=== PATIENT | male | born 1955 | race Caucasian/White ===

== ENCOUNTER 2019-09-30 14:39 | Outpatient (REF) | payer BC, SELFPAY ==
[2019-09-30 21:51] LABS: Anion Gap 9.2 mmol/L (3-11); BUN 16 mg/dL (7-18); CO2 27.8 mmol/L (21.0-32.0); CREATININE 0.98 mg/dL (0.70-1.30); Calculated LDL 101 mg/dL (<100); Chloride 102 mmol/L (98-107); Cholesterol 166 mg/dL (<200); Glucose 133 mg/dL (74-106); HDL Cholesterol 43 mg/dL (40-60); Potassium 4.3 mmol/L (3.5-5.1); Sodium 139 mmol/L (136-145); Triglyceride 114 mg/dL (<150)
[2019-10-02 11:48] LABS: HIV-1/2 Ag & Ab Screen Negative (Negative); Hepatitis C Ab w Rflx HCV PCR Negative (Negative)
[2019-10-02 15:18] LABS: PSA, Screening 0.8 ng/mL (0.0-4.5)
== END 2019-09-30 14:59 ==
LOC: NCHCN 14:39
PROVIDERS: Visit Provider Nurse Practitioner Family
DX: E11.9 Type 2 diabetes mellitus without complications (principal); F31.9 Bipolar disorder, unspecified; E66.9 Obesity, unspecified; K30 Functional dyspepsia; Z12.5 Encounter for screening for malignant neoplasm of prostate; Z11.4 Encounter for screening for human immunodeficiency virus [HIV]; N52.9 Male erectile dysfunction, unspecified; G47.33 Obstructive sleep apnea (adult) (pediatric); Z11.59 Encounter for screening for other viral diseases
CPT/HCPCS: 80048; 80061; 84153; 86803; 87389

== ENCOUNTER 2020-06-30 12:02 | Outpatient (REF) | payer BC, SELFPAY ==
[2020-06-30 13:48] LABS: Hemoglobin A1C 6.9 % (<5.7)
[2020-06-30 14:04] LABS: ALT 65 U/L (16-63); AST 28 U/L (15-37); Albumin 3.7 g/dL (3.4-5.0); Alkaline Phosphatase 67 U/L (46-116); Anion Gap 7.4 mmol/L (3-11); BUN 16 mg/dL (7-18); Bilirubin, Total 0.5 mg/dL (0.2-1.0); CO2 26.6 mmol/L (21.0-32.0); CREATININE 0.9 mg/dL (0.70-1.30); Calcium 8.6 mg/dL (8.5-10.1); Calculated LDL 94 mg/dL (<100); Chloride 107 mmol/L (98-107); Cholesterol 149 mg/dL (<200); Glucose 171 mg/dL (74-106); HDL Cholesterol 38 mg/dL (40-60); Potassium 4.6 mmol/L (3.5-5.1); Sodium 141 mmol/L (136-145); Total Protein 6.9 g/dL (6.4-8.2); Triglyceride 87 mg/dL (<150)
== END 2020-06-30 12:03 | disposition home or self-care (01) ==
LOC: NCHCN 12:02
PROVIDERS: Visit Provider Nurse Practitioner Family
DX: E11.9 Type 2 diabetes mellitus without complications (principal); K30 Functional dyspepsia; E66.9 Obesity, unspecified
CPT/HCPCS: 80053; 80061; 83036

== ENCOUNTER 2020-10-06 09:06 | Outpatient (REF) | payer BC, SELFPAY ==
[2020-10-06 15:28] LABS: Microalb ug/mg Crea 8.8 ug/mg Cr
[2020-10-06 15:31] LABS: ALT 74 U/L (16-63); AST 33 U/L (15-37); Albumin 3.8 g/dL (3.4-5.0); Alkaline Phosphatase 71 U/L (46-116); Anion Gap 10.9 mmol/L (3-11); BUN 17 mg/dL (7-18); Bilirubin, Total 0.7 mg/dL (0.2-1.0); CO2 25.1 mmol/L (21.0-32.0); Calcium 9.1 mg/dL (8.5-10.1); Chloride 106 mmol/L (98-107); Glucose 178 mg/dL (74-106); Potassium 4.4 mmol/L (3.5-5.1); Sodium 142 mmol/L (136-145); Total Protein 6.7 g/dL (6.4-8.2)
== END 2020-10-06 09:07 | disposition home or self-care (01) ==
LOC: NCHCN 09:06
PROVIDERS: Visit Provider Nurse Practitioner Family
DX: E11.9 Type 2 diabetes mellitus without complications (principal)
CPT/HCPCS: 80053; 82043; 82570

== ENCOUNTER 2020-11-30 10:58 | Outpatient (REF) | payer BC, SELFPAY ==
[2020-11-30 15:55] LABS: ALT 68 U/L (16-63); AST 39 U/L (15-37); Albumin 4.1 g/dL (3.4-5.0); Alkaline Phosphatase 60 U/L (46-116); Anion Gap 11.4 mmol/L (3-11); BUN 13 mg/dL (7-18); Bilirubin, Total 0.8 mg/dL (0.2-1.0); CO2 26.6 mmol/L (21.0-32.0); Calcium 8.9 mg/dL (8.5-10.1); Calculated LDL 75 mg/dL (<100); Chloride 102 mmol/L (98-107); Cholesterol 157 mg/dL (<200); Glucose 153 mg/dL (74-106); HDL Cholesterol 38 mg/dL (40-60); Potassium 4.7 mmol/L (3.5-5.1); Sodium 140 mmol/L (136-145); Total Protein 7.1 g/dL (6.4-8.2); Triglyceride 222 mg/dL (<150)
== END 2020-11-30 10:59 | disposition home or self-care (01) ==
LOC: NCHCN 10:58
PROVIDERS: Visit Provider Nurse Practitioner Family
DX: E11.9 Type 2 diabetes mellitus without complications (principal)
CPT/HCPCS: 80053; 80061

== ENCOUNTER 2021-04-29 16:02 | Outpatient (REF) | payer BC, SELFPAY ==
[2021-04-29 21:18] LABS: ALT 66 U/L (16-63); AST 27 U/L (15-37); Albumin 4.2 g/dL (3.4-5.0); Alkaline Phosphatase 58 U/L (46-116); Anion Gap 7.2 mmol/L (3-11); BUN 16 mg/dL (7-18); Bilirubin, Total 0.9 mg/dL (0.2-1.0); CO2 29.8 mmol/L (21.0-32.0); CREATININE 0.9 mg/dL (0.70-1.30); Calculated LDL 109 mg/dL (<100); Chloride 103 mmol/L (98-107); Cholesterol 181 mg/dL (<200); Glucose 132 mg/dL (74-106); HDL Cholesterol 46 mg/dL (40-60); Potassium 4.1 mmol/L (3.5-5.1); Sodium 140 mmol/L (136-145); Total Protein 7.4 g/dL (6.4-8.2); Triglyceride 133 mg/dL (<150)
== END 2021-04-29 16:03 | disposition home or self-care (01) ==
LOC: NCHCN 16:02
PROVIDERS: Visit Provider Nurse Practitioner Family
DX: E11.9 Type 2 diabetes mellitus without complications (principal)
CPT/HCPCS: 80053; 80061

== ENCOUNTER 2021-10-21 15:56 | Outpatient (REF) | payer BC, SELFPAY ==
[2021-10-21 16:05] LABS: ALT 54 U/L (16-63); AST 28 U/L (15-37); Albumin 3.8 g/dL (3.4-5.0); Alkaline Phosphatase 82 U/L (46-116); Anion Gap 11.1 mmol/L (3-11); BUN 19 mg/dL (7-18); Bilirubin, Total 0.5 mg/dL (0.2-1.0); CO2 24.9 mmol/L (21.0-32.0); CREATININE 0.9 mg/dL (0.70-1.30); Calcium 8.7 mg/dL (8.5-10.1); Calculated LDL 82 mg/dL (<100); Chloride 103 mmol/L (98-107); Cholesterol 170 mg/dL (<200); Glucose 155 mg/dL (74-106); HDL Cholesterol 42 mg/dL (40-60); Potassium 4.5 mmol/L (3.5-5.1); Sodium 139 mmol/L (136-145); Total Protein 7.3 g/dL (6.4-8.2); Triglyceride 232 mg/dL (<150)
== END 2021-10-21 15:57 | disposition home or self-care (01) ==
LOC: NCHCN 15:56
PROVIDERS: Visit Provider Nurse Practitioner Family
DX: E11.9 Type 2 diabetes mellitus without complications (principal)
CPT/HCPCS: 80053; 80061; 83036

== ENCOUNTER 2021-10-28 16:22 | Outpatient (REF) | payer BC, SELFPAY ==
[2021-10-28 16:18] LABS: COMMENT (LAB VIEW ONLY) 166.62 mg/dL; Microalb ug/mg Crea 5.6 ug/mg Cr
== END 2021-10-28 16:23 | disposition home or self-care (01) ==
LOC: NCHCN 16:22
PROVIDERS: Visit Provider Nurse Practitioner Family
DX: E11.9 Type 2 diabetes mellitus without complications (principal)
CPT/HCPCS: 82043; 82570

== ENCOUNTER 2021-12-28 18:54 | Outpatient (REF) | payer BC, SELFPAY ==
[2021-12-28 14:51] LABS: Abs Immature Grans 0.01 10^3/uL (0.0-0.06); Absolute Basophil Count 0.04 10^3/uL (0.0-0.2); Absolute Eosinophil Count 0.07 10^3/uL (0.0-0.7); Absolute Lymphocyte Count 1.59 10^3/uL (1.2-3.4); Absolute Monocyte Count 0.45 10^3/uL (0.1-0.8); Absolute Neutrophil Count 2.53 10^3/uL (1.2-6.7); Basophils % 0.9; Eosinophils % 1.5; HCT 43.6 % (40.0-50.0); HGB 15.1 g/dL (13.5-17.5); Immature Grans % 0.2; Lymphocytes % 33.9; MCH 31.4 pg (27.0-33.0); MCHC 34.6 % (32.0-36.0); MCV 91 fL (80-95); MPV 10.2 fL (8.0-11.0); Monocytes % 9.6; Neutrophils % 53.9; Platelet Count 259 10^3/uL (130-400); RBC 4.81 10^6/uL (4.36-5.78); RDW 11.7 % (11.8-14.1); RDW-SD 39.1 fL; WBC 4.69 10^3/uL (4.4-10.8)
[2021-12-28 14:57] LABS: Prothrombin Time 9.6 sec (9.3-11.0)
[2021-12-28 15:04] LABS: Anion Gap 10.6 mmol/L (3-11); BUN 18 mg/dL (7-18); CO2 25.4 mmol/L (21.0-32.0); CREATININE 0.9 mg/dL (0.70-1.30); Calcium 8.8 mg/dL (8.5-10.1); Chloride 105 mmol/L (98-107); Estimated GFR 95.37 (mL/min/1.73m2); Glucose 146 mg/dL (74-106); Potassium 4.2 mmol/L (3.5-5.1); Sodium 141 mmol/L (136-145)
[2021-12-28 15:27] LABS: Hemoglobin A1C 6.9 % (<5.7)
== END 2021-12-28 18:55 | disposition home or self-care (01) ==
LOC: NCHCN 18:54
PROVIDERS: Visit Provider Nurse Practitioner Family
DX: I10 Essential (primary) hypertension (principal); E11.9 Type 2 diabetes mellitus without complications; Z01.818 Encounter for other preprocedural examination
CPT/HCPCS: 80048; 83036; 85025; 85610

== ENCOUNTER 2022-08-31 15:48 | Outpatient (REF) | payer BC, SELFPAY ==
[2022-08-31 15:33] LABS: COMMENT (LAB VIEW ONLY) 170.08 mg/dL; Microalb ug/mg Crea 8.4 ug/mg Cr
--- OUTSIDE RECORDS SUMMARY | 2022-08-31 15:53 | XMS_ITS | CCD ---
Author Name Unknown Address [address] [place] [address] [phone] Organization Unknown Address [address] [place] [address] [phone] Care Team Providers Care Public Works Manager Name Role Phone EMETERIO MEDELLIN Attending Physician [phone] Vital Signs Unknown or Not Available. Allergies Allergy Code Allergy Type Reaction Status No Known Drug Allergies 0 No known drug allergies Active Procedures Procedure Code Procedure Type Date Arthroscopy, Shoulder, Surgi miguel angel; w/Rotator Cuff Repair 65435 CPT 01/05/2022 Surgical Arthroscopy Shoulde r Extensive Debridement 3 or More Discrete Structures 37444 CPT 01/05/2022 History of Immunizations Unknown or Not Available. Problems Problem Code Start Date Resolved Date Status Hypertension 44081182 Active Results Unknown or Not Available. Active Medications Unknown or Not Available. Medications Administered During Visit Unknown or Not Available. Encounters Encounter Diagnosis Diagnosis Code Start Date Complete rotator cuff tear o r rupture of left shoulder, not specified as traumatic [id number] 01/05/2022 Social History Smoking Status Code Start Date End Date Never smoker [id number] Patient Decision Aids Unknown or Not Available. Discharge Instructions You were admitted to [facility] on 01/05/2022 00:01 with a principal diagnosis of Complete rotator cuff tear or rupture of left shoulder, not specified as traumatic You had the following procedures done:Arthroscopy, Shoulder, Surgical; w/Rotator Cuff RepairSurgical Arthroscopy Shoulder Extensive Debridement 3 or More Discrete Structures You were discharged from [facility] on 01/05/2022 00:01 Should you have any questions prior to discharge, please contact a member of your healthcare team. If you have left the hospital and have any questions, please contact your primary care physician. Chief Complaint and Reason For Visit Unknown or Not Available. Function Status Unknown or Not Available. Plan of Care Unknown or Not Available. Referral/Transition of Care Unknown or Not Available.
--- OUTSIDE RECORDS SUMMARY | 2022-08-31 15:54 | XMS_ITS | CCD ---
Author Name Unknown Address [address] [place] [address] [id number] Organization Unknown Address [address] [place] [address] [phone] Care Team Providers Care Radiographic Technologist Name Role Phone EMETERIO MEDELLIN Attending Physician [phone] Vital Signs Unknown or Not Available. Allergies Allergy Code Allergy Type Reaction Status No Known Drug Allergies 0 No known drug allergies Active Procedures Unknown or Not Available. History of Immunizations Unknown or Not Available. Problems Problem Code Start Date Resolved Date Status Hypertension 94431491 Active Results PENNY ZUNIGAID RHEONIX* - Regina ect Date/Time: 01/04/2022 09:43 Test Name Code Test Result Test Units Test Ref Rang e Tier- 88256-2 PRE-OP N/A SARS COV2 RNA: 38318-1 NEGATIVE N/A REFERENCE RANGE: NEGAT Active Medications Unknown or Not Available. Medications Administered During Visit Unknown or Not Available. Encounters Encounter Diagnosis Diagnosis Code Start Date Pre-surgery testing [id number] 01/04/2022 Social History Smoking Status Code Start Date End Date Never smoker 819400339 Patient Decision Aids Unknown or Not Available. Discharge Instructions You were admitted to [facility] on 01/04/2022 16:51 with a principal diagnosis of Encounter for preprocedural laboratory examination You had the following tests done:PENNY COVID RHEONIX* You were discharged from [facility] on 01/04/2022 16:51 Should you have any questions prior to [...]
--- OUTSIDE RECORDS SUMMARY | 2022-08-31 15:54 | XMS_ITS | CCD ---
Author Name Unknown Address [address] [place] [address] [phone] Organization Unknown Address [address] [place] [address] [phone] Care Team Providers Care Ingot Car Operator Name Role Phone IRINEO HAGEN Attending Physician [phone] MELISSA VEGA Er Physician 2 [phone] ODALYS Guillermo Registered Nurse [phone] Vital Signs Vital Sign Value Unit Date/Time Recent/Initial ? BMI (Body Mass Index) 29.41 kg/m^2 03/28/2021 13: 46 Initial VS Weight Measured 205 lbs 03/28/2021 13:46 Ini tial VS Height 70 in 03/28/2021 13:46 Initial VS BSA (Body Surface Area) 2.14 m^2 03/28/2021 1 3:46 Initial VS BP Systolic 158 mmHg 03/28/2021 13:46 Initial VS BP Diastolic 87 mmHg 03/28/2021 13:46 Initia l VS Respiratory Rate 16 bpm 03/28/2021 13:46 In itial VS Heart Rate 78 bpm 03/28/2021 13:46 Initial VS O2 % BldC Oximetry 98 % 03/28/2021 13:46 Initial VS Body Temperature 37.1 degrees 03/28/2021 13:46 In itial VS Allergies Allergy Code Allergy Type Reaction Status No Known Drug Allergies 0 No known drug allergies Active Procedures Unknown or Not Available. History of Immunizations Unknown or Not Available. Problems Problem Code Start Date Resolved Date Status Hypertension 23872904 Active Diabetes 2 31936504 03/28/2021 Resolved Results PENNY ZUNIGAID GENEXPERT* - Co llect Date/Time: 03/28/2021 13:50 Test Name Code Test Result Test Units Test Ref Rang e COVID 82604-7 NEGATIVE N/A Normal: Negati ve Tier- SYMPTOMS N/A Active Medications Unknown or Not Available. Medications Administered During Visit Unknown or Not Available. Encounters Encounter Diagnosis Diagnosis Code Start Date Cough, unspecified R059 03/28/2021 Social History Smoking Status Code Start Date End Date Never smoker 729345777 Patient Decision Aids Unknown or Not Available. Discharge Instructions You were admitted to [facility] on 03/28/2021 11:44 with a principal diagnosis of Cough, unspecified You had the following tests done:[email or web address] GENEXPERT* You were discharged from [facility] on 03/28/2021 16:08 Should you have any questions prior to discharge, please contact a member of your healthcare team. If you have left the hospital and have any questions, please contact your primary care physician. Chief Complaint and Reason For Visit Chief Complaint Date of Onset FLU LIKE SYMTOMS Function Status Unknown or Not Available. Plan of Care Unknown or Not Available. Referral/Transition of Care Unknown or Not Available.
--- OUTSIDE RECORDS SUMMARY | 2022-08-31 15:54 | XMS_ITS | CCD ---
Author Name Unknown Address [address] [place] [address] [phone] Organization Unknown Address [address] [place] [address] [phone] Care Team Providers Care Waste Disposal Leakage Tester Name Role Phone JOSE ROBERTO SCHAEFER Attending Physician [phone] JOSE ROBERTO SCHAEFER Rounding (Secondary) Physician [phone] Vital Signs Unknown or Not Available. Allergies Allergy Code Allergy Type Reaction Status No Known Drug Allergies 0 No known drug allergies Active Procedures Unknown or Not Available. History of Immunizations Unknown or Not Available. Problems Problem Code Start Date Resolved Date Status Hypertension 12226753 Active Results Unknown or Not Available. Active Medications Unknown or Not Available. Medications Administered During Visit Unknown or Not Available. Encounters Encounter Diagnosis Diagnosis Code Start Date Follow-up orthopedic assessment 846904944 03/29/2022 Social History Smoking Status Code Start Date End Date Never smoker 509745509 Patient Decision Aids Unknown or Not Available. Discharge Instructions You were admitted to [facility] on 03/29/2022 13:20 with a principal diagnosis of Encounter for other orthopedic aftercare You were discharged from [facility] on 03/29/2022 00:00 Should you have any questions prior to [...]
--- OUTSIDE RECORDS SUMMARY | 2022-08-31 15:54 | XMS_ITS | CCD ---
Author Name Unknown Address [address] [place] [address] [id number] Organization Unknown Address [address] [place] [address] [phone] Care Team Providers Care Foundry Melt Supervisor Name Role Phone ANDREWS, WINTER K Attending Physician [phone] Vital Signs Unknown or Not Available. Allergies Allergy Code Allergy Type Reaction Status No Known Drug Allergies 0 No known drug allergies Active Procedures Unknown or Not Available. History of Immunizations Unknown or Not Available. Problems Problem Code Start Date Resolved Date Status Hypertension 94570600 Active Results Unknown or Not Available. Active Medications Unknown or Not Available. Medications Administered During Visit Unknown or Not Available. Encounters Encounter Diagnosis Diagnosis Code Start Date Strain of muscle(s) and tend on(s) of the rotator cuff of left shoulder, initial encounter [id number] 07/19/2021 Social History Smoking Status Code Start Date End Date Never smoker 557097011 Patient Decision Aids Unknown or Not Available. Discharge Instructions You were admitted to [facility] on 07/19/2021 09:34 with a principal diagnosis of Strain of muscle(s) and tendon(s) of the rotator cuff of left shoulder, initial encounter You were discharged from [facility] on 07/19/2021 09:34 Should you have any questions prior to discharge, please contact a member of your healthcare team. If you have left the hospital and have any questions, please contact your primary care physician. Chief Complaint and Reason For Visit Chief Complaint Date of Onset LT SHOULDER PAIN Function Status Unknown or Not Available. Plan of Care Unknown or Not Available. Referral/Transition of Care Unknown or Not Available.
--- OUTSIDE RECORDS SUMMARY | 2022-08-31 15:54 | XMS_ITS | CCD ---
Author Name Unknown Address [address] [place] [address] [phone] Organization Unknown Address [address] [place] [address] [phone] Care Team Providers Care Computer Console Operator Name Role Phone JOSE ROBERTO SCHAEFER Attending Physician [phone] JOSE ROBERTO SCHAEFER Rounding (Secondary) Physician [phone] Vital Signs Unknown or Not Available. Allergies Allergy Code Allergy Type Reaction Status No Known Drug Allergies 0 No known drug allergies Active Procedures Unknown or Not Available. History of Immunizations Unknown or Not Available. Problems Problem Code Start Date Resolved Date Status Hypertension 64069096 Active Results Unknown or Not Available. Active Medications Unknown or Not Available. Medications Administered During Visit Unknown or Not Available. Encounters Encounter Diagnosis Diagnosis Code Start Date Postprocedural state finding 050551985 Social History Smoking Status Code Start Date End Date Never smoker 916031760 Patient Decision Aids Unknown or Not Available. Discharge Instructions You were admitted to [facility] on 07/26/2022 14:19 with a principal diagnosis of Other specified postprocedural states You were discharged from [facility] on 07/26/2022 00:00 Should you have any questions prior [...]
--- OUTSIDE RECORDS SUMMARY | 2022-08-31 15:54 | XMS_ITS | CCD ---
Author Name Unknown Address [address] [place] [address] [id number] Organization Unknown Address [address] [place] [address] [phone] Care Team Providers Care Jockey Agent Name Role Phone KLEBER MCKENNA Attending Physician [phone] KLEBER MCKENNA (Secondary) Physician [phone] Vital Signs Unknown or Not Available. Allergies Allergy Code Allergy Type Reaction Status No Known Drug Allergies 0 No known drug allergies Active Procedures Unknown or Not Available. History of Immunizations Unknown or Not Available. Problems Problem Code Start Date Resolved Date Status Hypertension 28883533 Active Results Unknown or Not Available. Active Medications Unknown or Not Available. Medications Administered During Visit Unknown or Not Available. Encounters Encounter Diagnosis Diagnosis Code Start Date Follow-up orthopedic assessment 077457555 02/15/2022 Social History Smoking Status Code Start Date End Date Never smoker 966766029 Patient Decision Aids Unknown or Not Available. Discharge Instructions You were admitted to [facility] on 02/15/2022 07:28 with a principal diagnosis of Encounter for other orthopedic aftercare You were discharged from [facility] on 02/15/2022 00:00 Should you have any questions prior [...]
--- OUTSIDE RECORDS SUMMARY | 2022-08-31 15:54 | XMS_ITS | CCD ---
Author Name Unknown Address [address] [place] [address] [id number] Organization Unknown Address [address] [place] [address] [phone] Care Team Providers Care Health Outcomes Liaison Name Role Phone WINTER SPARROW Attending Physician [phone] WINTER SPARROW Rounding (Secondary) Physician [phone] Vital Signs Unknown or Not Available. Allergies Allergy Code Allergy Type Reaction Status No Known Drug Allergies 0 No known drug allergies Active Procedures Unknown or Not Available. History of Immunizations Unknown or Not Available. Problems Problem Code Start Date Resolved Date Status Hypertension 65627683 Active Results Unknown or Not Available. Active Medications Unknown or Not Available. Medications Administered During Visit Unknown or Not Available. Encounters Encounter Diagnosis Diagnosis Code Start Date Injury of shoulder region 198519582 2021 Social History Smoking Status Code Start Date End Date Never smoker 571839280 Patient Decision Aids Unknown or Not Available. Discharge Instructions You were admitted to [facility] on 05/17/2021 13:48 with a principal diagnosis of Shoulder injury You were discharged from [facility] on 05/17/2021 00:00 Should you have any questions prior [...]
--- OUTSIDE RECORDS SUMMARY | 2022-08-31 15:54 | XMS_ITS | CCD ---
Author Name Unknown Address [address] [place] [address] [id number] Organization Unknown Address [address] [place] [address] [phone] Care Team Providers Care Automobile Accessories Installer Name Role Phone PAMELA GALE Attending Physician [phone] PAMELA GALE Rounding (Secondary) Physici an [phone] Vital Signs Unknown or Not Available. Allergies Allergy Code Allergy Type Reaction Status No Known Drug Allergies 0 No known drug allergies Active Procedures Unknown or Not Available. History of Immunizations Unknown or Not Available. Problems Problem Code Start Date Resolved Date Status Hypertension 82870065 Active Results Unknown or Not Available. Active Medications Unknown or Not Available. Medications Administered During Visit Unknown or Not Available. Encounters Encounter Diagnosis Diagnosis Code Start Date Removal of suture 79573913 01/11/2022 Social History Smoking Status Code Start Date End Date Never smoker 597126721 Patient Decision Aids Unknown or Not Available. Discharge Instructions You were admitted to [facility] on 01/11/2022 08:32 with a principal diagnosis of Encounter for removal of sutures You were discharged from [facility] on 01/11/2022 00:00 Should you have any questions prior [...]
--- OUTSIDE RECORDS SUMMARY | 2022-08-31 15:55 | XMS_ITS | CCD ---
Author Name Unknown Address [address] [place] [address] [phone] Organization Unknown Address [address] [place] [address] [phone] Care Team Providers Care Application Systems Administrator Name Role Phone GOLD HINOJOSA Attending Physician [phone] ALESHA GARCIA Er Physician [phone] CHAVEZ Salgado Registered Nurse [phone] Vital Signs Vital Sign Value Unit Date/Time Recent/Initial ? BMI (Body Mass Index) 28.7 kg/m^2 12/30/2021 09: 30 Initial VS Weight Measured 200 lbs 12/30/2021 09:30 Ini tial VS Height 70 in 12/30/2021 09:30 Initial VS BSA (Body Surface Area) 2.12 m^2 12/30/2021 0 9:30 Initial VS BP Systolic 167 mmHg 12/30/2021 09:30 Initial VS BP Diastolic 109 mmHg 12/30/2021 09:30 Initia l VS Respiratory Rate 18 bpm 12/30/2021 09:30 In itial VS Heart Rate 64 bpm 12/30/2021 09:30 Initial VS O2 % BldC Oximetry 97 % 12/30/2021 09:30 Initial VS Body Temperature 36.2 degrees 12/30/2021 09:30 In itial VS Allergies Allergy Code Allergy Type Reaction Status No Known Drug Allergies 0 No known drug allergies Active Procedures Unknown or Not Available. History of Immunizations Unknown or Not Available. Problems Problem Code Start Date Resolved Date Status Hypertension 01208328 Active Results Unknown or Not Available. Active Medications Unknown or Not Available. Medications Administered During Visit Unknown or Not Available. Encounters Encounter Diagnosis Diagnosis Code Start Date Unspecified contact dermatitis, unspecified caus e L259 12/30/2021 Social History Smoking Status Code Start Date End Date Never smoker 528885171 Patient Decision Aids Unknown or Not Available. Discharge Instructions You were admitted to [facility] on 12/30/2021 09:13 with a principal diagnosis of Unspecified contact dermatitis, unspecified cause You were discharged from [facility] on 12/30/2021 10:49 Should you have any questions prior to discharge, please contact a member of your healthcare team. If you have left the hospital and have any questions, please contact your primary care physician. Chief Complaint and Reason For Visit Chief Complaint Date of Onset RASH Function Status Unknown or Not Available. Plan of Care Unknown or Not Available. Referral/Transition of Care Unknown or Not Available.
--- OUTSIDE RECORDS SUMMARY | 2022-08-31 15:55 | XMS_ITS | CCD ---
Author Name Unknown Address [address] [place] [address] [phone] Organization Unknown Address [address] [place] [address] [phone] Care Team Providers Care Currency Machine Operator Name Role Phone EMETERIO MEDELLIN Attending Physician [phone] EMETERIO MEDELLIN Rounding (Secondary) Physician [phone] Vital Signs Unknown or Not Available. Allergies Allergy Code Allergy Type Reaction Status No Known Drug Allergies 0 No known drug allergies Active Procedures Unknown or Not Available. History of Immunizations Unknown or Not Available. Problems Problem Code Start Date Resolved Date Status Hypertension 77573313 Active Results Unknown or Not Available. Active Medications Unknown or Not Available. Medications Administered During Visit Unknown or Not Available. Encounters Encounter Diagnosis Diagnosis Code Start Date Impingement syndrome of left shoulder M7542 09/21/2021 Social History Smoking Status Code Start Date End Date Never smoker 847534908 Patient Decision Aids Unknown or Not Available. Discharge Instructions You were admitted to [facility] on 09/21/2021 09:42 with a principal diagnosis of Impingement syndrome of left shoulder You were discharged from [facility] on 09/21/2021 00:00 Should you have any questions prior [...]
--- OUTSIDE RECORDS SUMMARY | 2022-08-31 15:55 | XMS_ITS | CCD ---
Author Name Unknown Address [address] [place] [address] [phone] Organization Unknown Address [address] [place] [address] [phone] Care Team Providers Care Dinkey Mechanic Name Role Phone EMETERIO MEDELLIN Attending Physician [phone] Vital Signs Vital Sign Value Unit Date/Time Recent/Initial ? BMI (Body Mass Index) 29.41 kg/m^2 12/23/2021 13: 25 Initial VS Weight Measured 205 lbs 12/23/2021 13:25 Ini tial VS Height 70 in 12/23/2021 13:25 Initial VS BSA (Body Surface Area) 2.14 m^2 12/23/2021 1 3:25 Initial VS Allergies Allergy Code Allergy Type Reaction Status No Known Drug Allergies 0 No known drug allergies Active Procedures Procedure Code Procedure Type Date Arthroscopy, Shoulder, Surgi miguel angel; w/Rotator Cuff Repair 91607 CPT 01/05/2022 Surgical Arthroscopy Shoulde r Extensive Debridement 3 or More Discrete Structures 73206 CPT 01/05/2022 Injection Anesthetic Agent a nd/or Steroid; Brachial Plexus 18779 CPT 01/05/2022 Anesthesia, Open/Surg Arthro scopic Proc, Humeral Head & Neck, Sternoclav/AC/Shoulder Jt; NOS 72675 CPT 0 01/05/2022 History of Immunizations Unknown or Not Available. Problems Problem Code Start Date Resolved Date Status Hypertension 63654486 Active Results GLUCOSE FINGER/HEEL CAPILLAR Y - Collect Date/Time: 01/05/2022 11:12 Test Name Code Test Result Test Units Test Ref Rang e GLUCOSE CAP 161 mg/dL L=70 H=116 GLUCOSE FINGER/HEEL CAPILLAR Y - Collect Date/Time: 01/05/2022 07:47 Test Name Code Test Result Test Units Test Ref Rang e GLUCOSE CAP 171 mg/dL L=70 H=116 Active Medications Medications Administered During Visit Medication Dose Units Frequency Route Date/Time of Last Dose LACTATED RINGERS 1000ML 1000 ML X1 01/05/2022 07:56 CeFAZolin IVPB FROZEN PREMIX : 2GM/100ML 2 GM X1 01/05/2022 09:2 5 PREGABALIN CAPSULE: 50MG 100 MG X1 PO 01/05/2022 07:55 CELECOXIB CAPSULE: 100MG 200 MG X1 PO 01/05/2022 07:55 MIDAZOLAM INJ SDV: 2MG/2ML 2 MG X1 IVP 01/05/2022 08:25 Encounters Encounter Diagnosis Diagnosis Code Start Date Strain of muscle(s) and tend on(s) of the rotator cuff of left shoulder, initial encounter V19900K 01/05/2022 Social History Smoking Status Code Start Date End Date Never smoker 333546489 Patient Decision Aids Unknown or Not Available. Discharge Instructions You were admitted to [facility] on 01/05/2022 07:06 with a principal diagnosis of Strain of muscle(s) and tendon(s) of the rotator cuff of left shoulder, initial encounter You had the following procedures done:Arthroscopy, Shoulder, Surgical; w/Rotator Cuff RepairSurgical Arthroscopy Shoulder Extensive Debridement 3 or More Discrete StructuresInjection Anesthetic Agent and/or Steroid; Brachial PlexusAnesthesia, Open/Surg Arthroscopic Proc, Humeral Head & Neck, Sternoclav/AC/Shoulder Jt; NOS You had the following tests done:GLUCOSE FINGER/HEEL CAPILLARYGLUCOSE FINGER/HEEL CAPILLARY You were discharged from [facility] on 01/05/2022 12:43 Should you have any questions prior to [...]
== END 2022-08-31 15:49 | disposition home or self-care (01) ==
LOC: NCHCN 15:48
PROVIDERS: Visit Provider Registered Nurse
DX: E11.9 Type 2 diabetes mellitus without complications (principal)
CPT/HCPCS: 82043; 82570

== ENCOUNTER 2022-11-30 18:47 | Outpatient (REF) | payer BC, SELFPAY ==
[2022-11-30 16:28] LABS: Anion Gap 9.5 mmol/L (3-11); BUN 19 mg/dL (7-18); CO2 25.5 mmol/L (21.0-32.0); CREATININE 0.8 mg/dL (0.70-1.30); Chloride 104 mmol/L (98-107); Estimated GFR 98.21 (mL/min/1.73m2); Glucose 111 mg/dL (74-106); Sodium 139 mmol/L (136-145)
== END 2022-11-30 18:48 | disposition home or self-care (01) ==
LOC: NCHCN 18:47
PROVIDERS: Visit Provider Registered Nurse
DX: I10 Essential (primary) hypertension (principal); E11.9 Type 2 diabetes mellitus without complications
CPT/HCPCS: 80048

== ENCOUNTER 2023-08-15 16:24 | Outpatient (REF) | payer BC, SELFPAY ==
[2023-08-15 21:22] LABS: Calculated LDL 48 mg/dL (<100); Cholesterol 126 mg/dL (<200); HDL Cholesterol 54 mg/dL (40-60); Triglyceride 122 mg/dL (<150)
== END 2023-08-15 16:25 | disposition home or self-care (01) ==
LOC: NCHCN 16:24
PROVIDERS: Visit Provider Physician Assistant
DX: E11.9 Type 2 diabetes mellitus without complications (principal)
CPT/HCPCS: 80061

== ENCOUNTER 2024-02-22 15:16 | Outpatient (REF) | payer BC, SELFPAY ==
--- OUTSIDE RECORDS SUMMARY | 2024-02-22 15:17 | XMS_ITS ---
Author Organization Unknown Address [address] [place] [address] [phone] Phone Care Team Providers Care Pen Rider Name Role Phone ANDREWS Gomes Attending Unavailable ALONSO GARCIA Primary Unavailable Results XR SHOULDER 2+ VIEWS LT* - C ompleted: 05/17/2021 16:26 LOINC: LEFT SHOULDER - THREE VIEWS There is no evidence of acute fracture nor dislocation. No abnormal soft tissue calcifications. There is mild narrowing of the glenohumeral joint space as seen on the Grashey view. No osteophytes evident. Subacromial space does not appear diminished. No os acromiale. IMPRESSION: Mild narrowing of the glenohumeral joint space noted. Dictated by: EAGLE MCKEON MD Transcribed by: [facility] [place] 05/18/21/09:23 D 05/17/2021 14:09:29 [id number] Electronically Reviewed and Signed By: KATIE MCKEON MD 05/19/21 07:29 Copy for: [facility] Social History Type Status Start Date End Date Code Code Syst em Smoking History Never smoker (Never Smoked) 398306106 SNOMED CT Sex Male Assessment You had the following problems:HYPERTENSION Hospital Discharge Instructions Should you have any questions prior to discharge, please contact a member of your healthcare team. If you have left the hospital and have any questions, please contact your primary care physician. Reason For Referral No Data Found Implants Implanted VERONICA Status Assigning Authority Procedure Date Lot Number Serial Number Manufacturing Date Expiration Date Distinct ID Code Brand Name Model Number Tendon/lig ament bone anchor, bioabsorba ble 0100 8888 6736 9658 1726 0131 1014 [id number] 84 Active FDA left shoulder arthroscop y, rotator cuff repair 01/05 [id number] 05/31/2025 Arthre x(R) AR-2600 SBS-10 Problems Problem Start Date Resolved Date Status Code Code System HYPERTENSION active 09721070 SNOMED- CT DIABETES 2 03/28/2021 resolved 40033446 SNOMED-C T Allergies and Adverse Reactions Allergy Substance Reaction Severity Start Date Concern Status Co de Code System No Known Drug Allergies Active 192752016 SNOMED-CT Plan of Treatment PRE-OP COVID-19 TESTING 01/04/2022 MRI LOWER EXT JOINT W/O CONTRAST 2021 Encounters Encounter Diagnosis Start Date Code Code Sys tem Injury of shoulder region 05/17/2021 111483214 SN OMED-CT Personal Care Team Section Performer Name Performer Role Active Date Inactive Justin bhagat
--- OUTSIDE RECORDS SUMMARY | 2024-02-22 15:17 | XMS_ITS ---
Author Organization Unknown ALLERGIES AND ADVERSE REACTIONS No information ASSESSMENT No information CHIEF COMPLAINT No information MEDICATIONS No information OBJECTIVE DATA No information PHYSICAL EXAMINATION No information TREATMENT PLAN Planned Care Start Date Provider Encounter for Check-up [phone] PROBLEMS No information RESULTS No information REVIEW OF SYSTEMS No information SUBJECTIVE DATA No information VITAL SIGNS No information
--- OUTSIDE RECORDS SUMMARY | 2024-02-22 15:18 | XMS_ITS ---
Author Organization Unknown Address [address] [place] [address] [phone] Phone Care Team Providers Care Bell Clerk Name Role Phone ANDREWS Gomes Attending Unavailable ALONSO GARCIA Primary Unavailable Social History Type Status Start Date End Date Code Code Syst em Smoking History Never smoker (Never Smoked) 222487392 SNOMED CT Sex Male Assessment You had [...] shoulder arthroscop y, rotator cuff repair 01/05 2798731 4 05/31/2025 Arthre x(R) AR-2600 SBS-10 Problems Problem Start Date Resolved Date Status Code Code System HYPERTENSION active 34926732 SNOMED- CT DIABETES 2 03/28/2021 resolved 78109492 SNOMED-C T Allergies and Adverse Reactions Allergy Substance Reaction Severity Start Date Concern Status Co de Code System No Known Drug Allergies Active 808759850 SNOMED-CT Plan of Treatment PRE-OP COVID-19 TESTING 01/04/2022 MRI LOWER EXT JOINT W/O CONTRAST 2021 Encounters Encounter Diagnosis Start Date Code Code Sys tem Strain of rotator cuff of shoulder 08/09/2021 279850 005 SNOMED-CT Personal Care Team Section Performer Name Performer Role Active Date Inactive Da te
--- OUTSIDE RECORDS SUMMARY | 2024-02-22 15:18 | XMS_ITS ---
Author Organization Unknown Address [address] [place] [address] [phone] Phone Care Team Providers Care Interior Design Coordinator Name Role Phone ANDREWS Gomes Attending Unavailable ALONSO GARCIA Primary Unavailable Results MR UPPER EXT ANY JOINT LT WI THOUT CONTR* - Completed: 07/19/2021 11:04 LOINC: LEFT SHOULDER MRI Noncontrast MRI of the left shoulder was performed according to protocol. Comparison x-ray is 05/17/21. There is a full-thickness tear of the supraspinatus tendon at its insertion site. There is a gap of 8 mm. The teres minor and infraspinatus tendons are intact. The subscapularis tendon is intact. The rotator cuff muscles show no significant fatty atrophy. The biceps tendon has a normal appearance and location. Degenerative changes are seen at the acromioclavicular joint and the glenohumeral joint. No evidence of an occult fracture or avascular necrosis is present. There is an irregular contour and signal of the posterior and superior labrum. A tear cannot be excluded. Degeneration may also be considered. The remainder of the labrum is grossly unremarkable on this noncontrast examination. There is a small amount of fluid in the subacromial-subdeltoid bursa. No other focal fluid collection is seen. No soft tissue mass is appreciated. The coracoclavicular ligament is intact. The glenohumeral joint capsule appears grossly unremarkable. IMPRESSION: 1. Full-thickness tear of the supraspinatus tendon with a gap of approximately 8 mm. 2. Abnormal signal and size seen in the posterior and superior labrums. This may represent a degeneration or tear. 3. Degenerative changes seen at the glenohumeral and acromioclavicular joints. Dictated by: BRAN SU MD Transcribed by: [facility] 07/19/21/13:38 D Monday, July 19, 2021 10:51:45 AM [id number] Electronically Reviewed and Signed By: JORGE SU MD 07/19/21 14:15 Copy for: ALONSO GARCIA via fax Copy for: [facility] INFORMATION MGMT Social History Type Status Start Date End Date Code Code Syst em Smoking History Never smoker (Never Smoked) 108773558 SNOMED CT Sex Male Assessment You had [...] shoulder arthroscop y, rotator cuff repair 01/05 2228737 4 05/31/2025 Arthre x(R) AR-2600 SBS-10 Problems Problem Start Date Resolved Date Status Code Code System HYPERTENSION active 19530983 SNOMED- CT DIABETES 2 03/28/2021 resolved 24203356 SNOMED-C T Allergies and Adverse Reactions Allergy Substance Reaction Severity Start Date Concern Status Co de Code System No Known Drug Allergies Active 680516789 SNOMED-CT Plan of Treatment PRE-OP COVID-19 TESTING 01/04/2022 MRI LOWER EXT JOINT W/O CONTRAST 2021 Encounters Encounter Diagnosis Start Date Code Code Sys tem Strain of muscle(s) and tend on(s) of the rotator cuff of left shoulder, initial encounter 07/19/2021 SNOMED- CT Personal Care Team Section Performer Name Performer Role Active Date Inactive Da te
--- OUTSIDE RECORDS SUMMARY | 2024-02-22 15:19 | XMS_ITS ---
Author Organization Unknown Address [address] [place] [address] [phone] Phone Care Team Providers Care Broadcasting Equipment Mechanic Name Role Phone CHAVEZ REYNOSO Registered Nurse Unavailable MICAELA Johnson Attending Unavailable RADHA Hernandez [facility] Unavailable ALONSO GARCIA Primary Unavailable UNLISTED PROVIDER - REQUESTED Xhandoff Un available Social History Type Status Start Date End Date Code Code Syst em Smoking History Never smoker (Never Smoked) 088605757 SNOMED CT Sex Male Vital Signs Vital Sign Value Unit Spickard Value Spickard Unit Date/Time Recent/Initial? Code Code System Body Mass Index 28.70 kg/m2 12/30/2021 09:30 Initial 01759 -5 LOINC Systolic Blood Pressure 167 mm[Hg] 12/30/2021 09:30 Initial 8480- 6 LOINC Diastolic Blood Pressure 109 mm[Hg] 12/30/2021 09:30 Initial 8462- 4 LOINC Body Surface Area 2.12 m2 12/30/2021 09:30 Initial 3140- 1 LOINC Height 177.800 0 cm 70.00 in 12/30/2021 09:30 Initial 8302- 2 LOINC O2 Saturation 97 % 2021 09:30 Initial 13521 -5 LOINC Pulse 64.0 /min 12/30/2021 09:30 Initial 8867- 4 LOINC Respiration 18 /min 12/31/19 09:30 Initial 9279- 1 LOINC Temperature 36.2 Padma 97.2 F 12/31/19 09:30 Initial 8310- 5 LOINC Weight 90.72 kg 200.00 lbs 12/30/2021 09:30 Initial 28962 -7 LOINC Assessment You had the following problems:HYPERTENSION Hospital [...] shoulder arthroscop y, rotator cuff repair 01/05 5455898 4 05/31/2025 Arthre x(R) AR-2600 SBS-10 Problems Problem Start Date Resolved Date Status Code Code System HYPERTENSION active 04584577 SNOMED- CT DIABETES 2 03/28/2021 resolved 04473281 SNOMED-C T Allergies and Adverse Reactions Allergy Substance Reaction Severity Start Date Concern Status Co de Code System No Known Drug Allergies Active 156515231 SNOMED-CT Plan of Treatment PRE-OP COVID-19 TESTING 01/04/2022 MRI LOWER EXT JOINT W/O CONTRAST 2021 Encounters Encounter Diagnosis Start Date Code Code Sys tem Unspecified contact dermatitis, unspecified cause 05/2021 SNOMED-CT Personal Care Team Section Performer Name Performer Role Active Date Inactive Da te
--- OUTSIDE RECORDS SUMMARY | 2024-02-22 15:19 | XMS_ITS ---
Author Organization Unknown Address [address] [place] [address] [phone] Phone Care Team Providers Care Hog Buyer Name Role Phone LACIE Trinidad Attending Unavailable MABEL Mata FRACTIONATING STILL OPERATOR Unavailable OLIVE CID Physician Certified Rehabilitation Counselor Unavailable ALONSO GARCIA Primary Unavailable Results GLUCOSE FINGER/HEEL CAPILLAR Y - Collect Date/Time: 01/05/2022 11:12 [facility] ID: [id number] [address] [place] [address], [phone] LOINC: 99282-7 Test Value Unit Reference Range Code Code System Flag GLUCOSE CAP 161 mg/dL L=70 H=116 H GLUCOSE FINGER/HEEL CAPILLAR Y - Collect Date/Time: 01/05/2022 07:47 [facility] ID: [id number] [address] [place] [address], [phone] LOINC: 35648-5 Test Value Unit Reference Range Code Code System Flag GLUCOSE CAP 171 mg/dL L=70 H=116 H Social History Type Status Start Date End Date Code Code Syst em Smoking History Never smoker (Never Smoked) 294409332 SNOMED CT Sex Male Vital Signs Vital Sign Value Unit Mercer Value Mercer Unit Date/Time Recent/Initial? Code Code System Body Mass Index 29.41 kg/m2 12/23/2021 13:25 Initial 54793- 5 LOINC Body Surface Area 2.14 m2 12/23/2021 13:25 Initial 3140-1 LOINC Height 177.8000 cm 70.00 in 12/23/2021 13:25 Initial 8302-2 LOINC Weight 92.99 kg 205.00 lbs 12/23/2021 13:25 Initial 98136- 7 [facility] Assessment You had the following problems:HYPERTENSION Hospital Discharge Instructions Should you have any questions prior to discharge, please contact a member of your healthcare team. If you have left the hospital and have any questions, please contact your primary care physician. Reason For Referral No Data Found Procedures Procedure Name Date Status Code Code Syste m Arthroscopy, Shoulder, Surgi miguel angel; w/Rotator Cuff Repair 01/05/2022 completed 82514 CPT Surgical Arthroscopy Shoulde r Extensive Debridement 3 or More Discrete Structures 01/05/2022 completed 96966 CPT Injection Anesthetic Agent a nd/or Steroid; Brachial Plexus 01/05/2022 completed 05591 CPT Anesthesia, Open/Surg Arthro scopic Proc, Humeral Head & Neck, Sternoclav/AC/Shoulder Jt; NOS 01/05/2022 completed 06288 CPT Implants Implanted VERONICA Status Assigning Authority Procedure Date Lot Number Serial Number Manufacturing Date Expiration Date Distinct ID Code Brand Name Model Number Tendon/lig ament bone anchor, bioabsorba ble 0100 8888 6736 9658 1726 0131 [id number] 84 Active FDA left shoulder arthroscop y, rotator cuff repair 01/05 5231214 4 05/31/2025 Arthre x(R) AR-2600 SBS-10 Problems Problem Start Date Resolved Date Status Code Code System HYPERTENSION active 50058275 SNOMED- CT DIABETES 2 03/28/2021 resolved 75562249 SNOMED-C T Allergies and Adverse Reactions Allergy Substance Reaction Severity Start Date Concern Status Co de Code System No Known Drug Allergies Active 272656109 SNOMED-CT Plan of Treatment PRE-OP COVID-19 TESTING 01/04/2022 MRI LOWER EXT JOINT W/O CONTRAST 2021 Encounters Encounter Diagnosis Start Date Code Code Sys tem Strain of muscle(s) and tend on(s) of the rotator cuff of left shoulder, initial encounter 01/05/2022 SNOMED- CT Personal Care Team Section Performer Name Performer Role Active Date Inactive Da te
--- OUTSIDE RECORDS SUMMARY | 2024-02-22 15:19 | XMS_ITS ---
Author Organization Unknown Address [address] [place] [address] [phone] Phone Care Team Providers Care Bar Useful Or Busser Name Role Phone LACIE Trinidad Attending Unavailable Social History Type Status Start Date End Date Code Code Syst em Smoking History Never smoker (Never Smoked) 819000327 SNOMED CT Sex Male Assessment You had [...] miguel angel; w/Rotator Cuff Repair 01/05/2022 completed 60329 CPT Surgical Arthroscopy Shoulde r Extensive Debridement 3 or More Discrete Structures 01/05/2022 completed 30990 CPT Implants Implanted VERONICA Status Assigning Authority Procedure Date Lot Number Serial Number Manufacturing Date Expiration Date Distinct ID Code Brand Name Model Number Tendon/lig ament bone anchor, bioabsorba ble 0100 8888 6736 9658 1726 0131 1014 [id number] 84 Active FDA left shoulder arthroscop y, rotator cuff repair 01/05 1886911 4 05/31/2025 Arthre x(R) AR-2600 SBS-10 Problems Problem Start Date Resolved Date Status Code Code System HYPERTENSION active 37948753 SNOMED- CT DIABETES 2 03/28/2021 resolved 09724619 SNOMED-C T Allergies and Adverse Reactions Allergy Substance Reaction Severity Start Date Concern Status Co de Code System No Known Drug Allergies Active 905496726 SNOMED-CT Plan of Treatment PRE-OP COVID-19 TESTING 01/04/2022 MRI LOWER EXT JOINT W/O CONTRAST 2021 Encounters Encounter Diagnosis Start Date Code Code Sys tem Complete rotator cuff tear o r rupture of left shoulder, not specified as traumatic 01/05/2022 SNOMED-CT Personal Care Team Section Performer Name Performer Role Active Date Inactive Da te
--- OUTSIDE RECORDS SUMMARY | 2024-02-22 15:20 | XMS_ITS ---
Author Organization Unknown Address [address] [place] [address] [phone] Phone Care Team Providers Care Ship Engineer Name Role Phone SHAHLA PAMELA Khan Attending Unavailable ALONSO GARCIA Primary Unavailable Social History Type Status Start Date End Date Code Code Syst em Smoking History Never smoker (Never Smoked) 143674807 SNOMED CT Sex Male Assessment You had [...] shoulder arthroscop y, rotator cuff repair 01/05 9037280 4 05/31/2025 Arthre x(R) AR-2600 SBS-10 Problems Problem Start Date Resolved Date Status Code Code System HYPERTENSION active 98328872 SNOMED- CT DIABETES 2 03/28/2021 resolved 57433781 SNOMED-C T Allergies and Adverse Reactions Allergy Substance Reaction Severity Start Date Concern Status Co de Code System No Known Drug Allergies Active 037911829 SNOMED-CT Plan of Treatment PRE-OP COVID-19 TESTING 01/04/2022 MRI LOWER EXT JOINT W/O CONTRAST 2021 Encounters Encounter Diagnosis Start Date Code Code Sys tem Removal of suture 01/11/2022 14212783 SNOMED-CT Personal Care Team Section Performer Name Performer Role Active Date Inactive Da te
--- OUTSIDE RECORDS SUMMARY | 2024-02-22 15:20 | XMS_ITS ---
Author Organization Unknown Address [address] [place] [address] [phone] Phone Care Team Providers Care Analyst Name Role Phone LACIE Trinidad Attending Unavailable ALONSO GARCIA Primary Unavailable Social History Type Status Start Date End Date Code Code Syst em Smoking History Never smoker (Never Smoked) 403450785 SNOMED CT Sex Male Assessment You had [...] shoulder arthroscop y, rotator cuff repair 01/05 3373283 4 05/31/2025 Arthre x(R) AR-2600 SBS-10 Problems Problem Start Date Resolved Date Status Code Code System HYPERTENSION active 05200893 SNOMED- CT DIABETES 2 03/28/2021 resolved 76764250 SNOMED-C T Allergies and Adverse Reactions Allergy Substance Reaction Severity Start Date Concern Status Co de Code System No Known Drug Allergies Active 952897614 SNOMED-CT Plan of Treatment PRE-OP COVID-19 TESTING 01/04/2022 MRI LOWER EXT JOINT W/O CONTRAST 2021 Encounters Encounter Diagnosis Start Date Code Code Sys tem Encounter for other orthopedic aftercare 01/18/2022 SNOMED-CT Personal Care Team Section Performer Name Performer Role Active Date Inactive Da te
--- OUTSIDE RECORDS SUMMARY | 2024-02-22 15:20 | XMS_ITS ---
Author Organization Unknown Address [address] [place] [address] [phone] Phone Care Team Providers Care Dairy Farmer Name Role Phone LACIE Trinidad Attending Unavailable ALONSO GARCIA Primary Unavailable [facility] [place] ect Date/Time: 01/04/2022 09:43 ID: [id number] [address] [place] [address], [phone] LOINC: 75617-5 Test Value Unit Reference Range Code Code System Flag Tier- PRE-OP 69146-0 LOINC SARS COV2 RNA: NEGATIVE REFERENCE RANGE: NEGAT 40793-0 L OINC Social History Type Status Start Date End Date Code Code Syst em Smoking History Never smoker (Never Smoked) 224338210 SNOMED CT Sex Male Assessment You had [...] shoulder arthroscop y, rotator cuff repair 01/05 1541084 4 05/31/2025 Arthre x(R) AR-2600 SBS-10 Problems Problem Start Date Resolved Date Status Code Code System HYPERTENSION active 42309505 SNOMED- CT DIABETES 2 03/28/2021 resolved 53850727 SNOMED-C T Allergies and Adverse Reactions Allergy Substance Reaction Severity Start Date Concern Status Co de Code System No Known Drug Allergies Active 921584363 SNOMED-CT Plan of Treatment PRE-OP COVID-19 TESTING 01/04/2022 MRI LOWER EXT JOINT W/O CONTRAST 2021 Encounters Encounter Diagnosis Start Date Code Code Sys tem Pre-surgery testing 01/04/2022 240175284 SNOMED-C T Personal Care Team Section Performer Name Performer Role Active Date Inactive Da olayinka
--- OUTSIDE RECORDS SUMMARY | 2024-02-22 15:21 | XMS_ITS ---
Author Organization Unknown Address [address] [place] [address] [phone] Phone Care Team Providers Care Draw Frame Operator Name Role Phone OLIVE CID Attending Unavailable ALONSO GARCIA Primary Unavailable Social History Type Status Start Date End Date Code Code Syst em Smoking History Never smoker (Never Smoked) 120366301 SNOMED CT Sex Male Assessment You had [...] shoulder arthroscop y, rotator cuff repair 01/05 5528838 4 05/31/2025 Arthre x(R) AR-2600 SBS-10 Problems Problem Start Date Resolved Date Status Code Code System HYPERTENSION active 76784871 SNOMED- CT DIABETES 2 03/28/2021 resolved 98051567 SNOMED-C T Allergies and Adverse Reactions Allergy Substance Reaction Severity Start Date Concern Status Co de Code System No Known Drug Allergies Active 710144014 SNOMED-CT Plan of Treatment PRE-OP COVID-19 TESTING 01/04/2022 MRI LOWER EXT JOINT W/O CONTRAST 2021 Encounters Encounter Diagnosis Start Date Code Code Sys tem Postprocedural state finding 05/30/2022 071124600 SNOMED-CT Personal Care Team Section Performer Name Performer Role Active Date Inactive Da te
--- OUTSIDE RECORDS SUMMARY | 2024-02-22 15:21 | XMS_ITS ---
Author Organization Unknown Address [address] [place] [address] [phone] Phone Care Team Providers Care Spa Director/Finance Name Role Phone OLIVE CID Attending Unavailable ALONSO GARCIA Primary Unavailable Social History Type Status Start Date End Date Code Code Syst em Smoking History Never smoker (Never Smoked) 705637364 SNOMED CT Sex Male Assessment You had [...] shoulder arthroscop y, rotator cuff repair 01/05 0093539 4 05/31/2025 Arthre x(R) AR-2600 SBS-10 Problems Problem Start Date Resolved Date Status Code Code System HYPERTENSION active 69392850 SNOMED- CT DIABETES 2 03/28/2021 resolved 54894254 SNOMED-C T Allergies and Adverse Reactions Allergy Substance Reaction Severity Start Date Concern Status Co de Code System No Known Drug Allergies Active 253015896 SNOMED-CT Plan of Treatment PRE-OP COVID-19 TESTING 01/04/2022 MRI LOWER EXT JOINT W/O CONTRAST 2021 Encounters Encounter Diagnosis Start Date Code Code Sys tem Postprocedural state finding 07/26/2022 714916971 SNOMED-CT Personal Care Team Section Performer Name Performer Role Active Date Inactive Da te
--- OUTSIDE RECORDS SUMMARY | 2024-02-22 15:21 | XMS_ITS ---
Author Organization Unknown Address [address] [place] [address] [phone] Phone Care Team Providers Care Creosoting Engineer Name Role Phone CLARISA SHAHID Attending Unavailable ALONSO GARCIA Primary Unavailable Social History Type Status Start Date End Date Code Code Syst em Smoking History Never smoker (Never Smoked) 470012969 SNOMED CT Sex Male Assessment You had [...] shoulder arthroscop y, rotator cuff repair 01/05 8271377 4 05/31/2025 Arthre x(R) AR-2600 SBS-10 Problems Problem Start Date Resolved Date Status Code Code System HYPERTENSION active 96730691 SNOMED- CT DIABETES 2 03/28/2021 resolved 36180150 SNOMED-C T Allergies and Adverse Reactions Allergy Substance Reaction Severity Start Date Concern Status Co de Code System No Known Drug Allergies Active 026000968 SNOMED-CT Plan of Treatment PRE-OP COVID-19 TESTING 01/04/2022 MRI LOWER EXT JOINT W/O CONTRAST 2021 Encounters Encounter Diagnosis Start Date Code Code Sys tem Follow-up orthopedic assessment 02/15/2022 433775783 SNOMED-CT Personal Care Team Section Performer Name Performer Role Active Date Inactive Da te
--- OUTSIDE RECORDS SUMMARY | 2024-02-22 15:21 | XMS_ITS ---
Author Organization Unknown Address [address] [place] [address] [phone] Phone Care Team Providers Care Cream Buyer Name Role Phone OLIVE CID Attending Unavailable ALONSO GARCIA Primary Unavailable Social History Type Status Start Date End Date Code Code Syst em Smoking History Never smoker (Never Smoked) 761919027 SNOMED CT Sex Male Assessment You had [...] shoulder arthroscop y, rotator cuff repair 01/05 1188183 4 05/31/2025 Arthre x(R) AR-2600 SBS-10 Problems Problem Start Date Resolved Date Status Code Code System HYPERTENSION active 83550336 SNOMED- CT DIABETES 2 03/28/2021 resolved 11090768 SNOMED-C T Allergies and Adverse Reactions Allergy Substance Reaction Severity Start Date Concern Status Co de Code System No Known Drug Allergies Active 582392324 SNOMED-CT Plan of Treatment PRE-OP COVID-19 TESTING 01/04/2022 MRI LOWER EXT JOINT W/O CONTRAST 2021 Encounters Encounter Diagnosis Start Date Code Code Sys tem Follow-up orthopedic assessment 03/29/2022 876034709 SNOMED-CT Personal Care Team Section Performer Name Performer Role Active Date Inactive Da te
--- OUTSIDE RECORDS SUMMARY | 2024-02-22 15:22 | XMS_ITS | Clinical Summary ---
Author Organization [facility] Address [address] [place] [address] Care Team Providers Care Supervisor [employer] Name Role Phone Unavailable Primary Care Provider Unavailabl e Social History Tobacco Use Types Packs/Day Years Used Date Smoking Tobacco: Never Assessed Interpersonal Safety Answer Date Record ed Physically Hurt Never 03/24/2020 Verbally Threaten Not on file 03/24/2020 Sex and Gender Information Value Date Recorded Sex Assigned at Not on file Gender Identity Not on file Sexual Orientation Not on file Plan of Treatment Health Maintenance Due Date Last Done Comments RSV Immunization ( o r 60+ Years) (1 - 1-dose 60+ series) 2017 Fall Risk Screening 2022 COVID-19 Vaccine ( season) 2022 Hepatitis C Screen Completed 09/30/2019 Procedures Procedure Name Priority Date/Time Associated Diagnosis Comments HEPATITIS C AB W REFLEX TO HCV RNA BY PCR Routine 09/30/2019 14:21 EDT from Last 3 Months or Most Recently Relevant to Health Maintenance Results * HEPATITIS C AB W REFLEX TO HCV RNA BY PCR (09/30/2019 14:21 EDT) Hep C Antibody Negative Negative 10/02/2019 11:43 EDT [facility] Blood VENOUS BLOOD / Unknown 09/30/2019 14:21 EDT 10/01/2019 16:38 EDT Provider Outr Resulting Lab CHEMISTRY & BLOOD GAS ORDERABLES [facility] [address] [place] [address] from Last 3 Months or Most Recently Relevant to Health Maintenance
--- OUTSIDE RECORDS SUMMARY | 2024-02-22 15:22 | XMS_ITS | Encounter Summary ---
Author Organization [facility] Address [address] [place] [address] Care Team Providers Care Deputy Coroner Investigator Name Role Phone Unavailable Primary Care Provider Unavailabl e Encounter Details Date Type Department Care Team (Late st Contact Info) Description 10/01/[address] [facility] Pathology & Laboratory Medicine - [facility] [address] [place] [address] Outr Resulting Lab, Provider Social History Tobacco Use Types Packs/Day Years Used Date Smoking Tobacco: Never Assessed Sex and Gender Information Value Date Recorded Sex Assigned at Not on file Gender Identity Not on file Sexual Orientation Not on file documented as of this encounter Plan of Treatment Not on file documented as of this encounter Procedures Procedure Name Priority Date/Time Associated Diagnosis Comments HIV 1/2 ANTIGEN AND ANTIBODY, 4TH GENERATION Routine 09/30/2019 14:21 EDT documented in this encounter Results * HIV 1/2 ANTIGEN AND ANTIBODY, 4TH GENERATION (09/30/2019 14:21 EDT) HIV 1 and 2 Antibody/p24 Antigen, 4th Generation Negative Negative 10/02/2019 11:43 EDT [facility] Comment: If acute HIV-1 infection is suspected in a high risk ??patient, submit plasma specimen for HIV-1 RNA quantitation test. Fourth Generation assay performed on the Siemens Centaur. Blood VENOUS BLOOD / Unknown 09/30/2019 14:21 EDT 10/01/2019 16:38 EDT Provider Outr Resulting Lab IMMUNOLOGY A ND SEROLOGY ORDERABLES [facility] [address] [place] [address] documented in this encounter Visit Diagnoses Not on filedocumented in this encounter
--- OUTSIDE RECORDS SUMMARY | 2024-02-22 15:22 | XMS_ITS | Encounter Summary ---
Author Organization [facility] Address [address] [place] [address] Care Team Providers Care Bridge Operator Name Role Phone Unavailable Primary Care Provider Unavailabl e Encounter Details Date Type Department Care Team (Late st Contact Info) Description 10/01/2019 Lab Requisition [facility] Pathology & Laboratory Medicine - [facility] [address] [place] [address] Outr Resulting Lab, Provider Social History Tobacco [...] RNA BY PCR Routine 09/30/2019 14:21 EDT documented in this encounter Results * HEPATITIS C AB W REFLEX TO HCV RNA BY PCR (09/30/2019 14:21 EDT) Hep C Antibody Negative Negative 10/02/2019 11:43 EDT [facility] Blood VENOUS BLOOD / Unknown 09/30/2019 14:21 EDT 10/01/2019 16:38 EDT Provider Outr Resulting Lab CHEMISTRY & BLOOD GAS ORDERABLES [facility] [address] [place] [address] documented in this encounter Visit Diagnoses Not on filedocumented in this encounter
--- OUTSIDE RECORDS SUMMARY | 2024-02-22 15:22 | XMS_ITS ---
Author Organization Unknown Address [address] [place] [phone] Phone Care Team Providers Care Continuous Conveyor Screen Drier Name Role Phone OLIVE CID Attending Unavailable JACQUELYNJAMES AHUMADA Primary Unavailable Social History Type Status Start Date End Date Code Code Syst em Smoking History Never smoker (Never Smoked) [id number] SNOMED CT Sex Male Assessment You had [...] shoulder arthroscop y, rotator cuff repair 01/05 [id number] 4 05/31/2025 Arthre x(R) AR-2600 SBS-10 Problems Problem Start Date Resolved Date Status Code Code System HYPERTENSION active 08949056 SNOMED- CT DIABETES 2 03/28/2021 resolved [id number] SNOMED-C T Allergies and Adverse Reactions Allergy Substance Reaction Severity Start Date Concern Status Co de Code System No Known Drug Allergies Active 778213219 SNOMED-CT Plan of Treatment PRE-OP COVID-19 TESTING 01/04/2022 MRI LOWER EXT JOINT W/O CONTRAST 2021 Encounters Encounter Diagnosis Start Date Code Code Sys tem Postprocedural state finding 02/03/2023 943617658 SNOMED-CT Personal Care Team Section Performer Name Performer Role Active Date Inactive Da te
--- OUTSIDE RECORDS SUMMARY | 2024-02-22 15:22 | XMS_ITS | Encounter Summary ---
Author Organization [facility] Address [address] [place] [address] Care Team Providers Care Warehouse Order Filler Name Role Phone Unavailable Primary Care Provider Unavailabl e Encounter Details Date Type Department Care Team (Late st Contact Info) Description 09/13/2019 Lab Requisition [facility] Pathology [facility] - [facility] [address] [place] [address] Outr Resulting Lab, Provider Social History Tobacco [...] Procedure Name Priority Date/Time Associated Diagnosis Comments DO NOT ORDER STANDALONE - BROAD COVID TEST Today 09/13/2019 13:32 EDT COVID-19 TESTING Routine 09/13/2019 13:3 2 EDT documented in this encounter Results * DO NOT ORDER STANDALONE - BROAD COVID TEST (09/13/2019 13:32 EDT) COVID-19 rt-PCR Result NEGATIVE Negative 09/14/2019 14:10 EDT [facility] Comment: 2019-novel Coronavirus (2019-nCoV) not detected by the qRT-PCR assay. Consider testing for other respiratory viruses or re-collecting for 2019-nCoV testing. Note: Optimum timing for peak viral levels during infections caused by 2019-nCoV have not been determined. Collection of multiple specimens from the same patient may be necessary to detect the virus. Limitations Positive results are indicative of active infection with SARS-CoV-2 but do not rule out bacterial infection or co-infection with other viruses. The agent detected may not be the definite cause of disease. In addition, detection of viral RNA may not indicate the presence of infectious virus or that SARS-CoV-2 is the causative agent for clinical symptoms. Negative results do not preclude SARS-CoV-2 infection and should not be used as the sole basis for patient management decisions. Negative results must be combined with clinical observations, patient history, and epidemiological information. False negative results may also occur if amplification inhibitors are present in the specimen or if inadequate numbers of organisms are present in the specimen. Optimum specimen types and timing for peak viral levels during infections caused by SARS-CoV-2 have not been fully determined. Collection of multiple specimens (types and time points) from the same patient may be necessary to detect the virus. The test was validated for use with upper respiratory specimens obtained via nasopharyngeal or oropharyngeal swabs in VTM, UTM, M4, M5, M6, saline, and MTM media. The performance of this test has not been established for other specimens. Specimens collected using other FDA recommended Specimen Collection Materials listed in the FDA COVID-19 [employer] communication (July 25, 2019) are processed with the caveat that they were not all validated for use with this test and the result must be interpreted in this context. Furthermore, a false negative results may occur if a specimen is improperly collected, transported or handled. If the virus mutates in the RT-PCR target region, SARS-CoV-2 may not be detected or may be detected less predictably. Inhibitors or other types of interference may produce a false negative result. An interference study evaluating the effect of common cold medications was not performed. This test is not FDA-cleared but its performance characteristics were established by our CLIA-certified, CAP-accredited, high complexity laboratory in accordance with CLIA regulations, [employer] (CAP) guidelines (Jul 18, 2019), and FDA guidance (Jun 29, 2019). This test is only for use under the Food and Drug Administration's Emergency Use Authorization. Swab ENTIRE NASOPHARYNX / Unknown 09/13/2019 13:32 EDT 09/13/2019 21:21 EDT Provider Outr Resulting Lab MICROBIOLOGY - GENERAL ORDERABLES [facility] [place], [place] * COVID-19 TESTING (09/13/2019 13:32 EDT) COVID-19 rt-PCR Result NEGATIVE Negative 09/14/2019 17:34 EDT [facility] Comment: 2019-novel Coronavirus (2019-nCoV) not detected by the qRT-PCR assay. Consider testing for other respiratory viruses or re-collecting for 2019-nCoV testing. Note: Optimum timing for peak viral levels during infections caused by 2019-nCoV have not been determined. Collection of multiple specimens from the same patient may be necessary to detect the virus. Limitations Positive results are indicative of active infection with SARS-CoV-2 but do not rule out bacterial infection or co-infection with other viruses. The agent detected may not be the definite cause of disease. In addition, detection of viral RNA may not indicate the presence of infectious virus or that SARS-CoV-2 is the causative agent for clinical symptoms. Negative results do not preclude SARS-CoV-2 infection and should not be used as the sole basis for patient management decisions. Negative results must be combined with clinical observations, patient history, and epidemiological information. False negative results may also occur if amplification inhibitors are present in the specimen or if inadequate numbers of organisms are present in the specimen. Optimum specimen types and timing for peak viral levels during infections caused by SARS-CoV-2 have not been fully determined. Collection of multiple specimens (types and time points) from the same patient may be necessary to detect the virus. The test was validated for use with upper respiratory specimens obtained via nasopharyngeal or oropharyngeal swabs in VTM, UTM, M4, M5, M6, saline, and MTM media. The performance of this test has not been established for other specimens. Specimens collected using other FDA recommended Specimen Collection Materials listed in the FDA COVID-19 [employer] communication (July 25, 2019) are processed with the caveat that they were not all validated for use with this test and the result must be interpreted in this context. Furthermore, a false negative results may occur if a specimen is improperly collected, transported or handled. If the virus mutates in the RT-PCR target region, SARS-CoV-2 may not be detected or may be detected less predictably. Inhibitors or other types of interference may produce a false negative result. An interference study evaluating the effect of common cold medications was not performed. This test is not FDA-cleared but its performance characteristics were established by our CLIA-certified, CAP-accredited, high complexity laboratory in accordance with CLIA regulations, [employer] [place] (CAP) guidelines (Jul 18, 2019), and FDA guidance (Jun 29, 2019). This test is only for use under the Food and Drug Administration's Emergency Use Authorization. Performing Lab [facility] [place] 09/14/2019 17:34 EDT [facility] Swab ENTIRE NASOPHARYNX / Unknown 09/13/2019 13:32 EDT 09/13/2019 21:21 EDT Provider Outr Resulting Lab MICROBIOLOGY - GENERAL ORDERABLES [facility] [address] [place] [address] [facility] [place], [place] documented in this encounter Visit Diagnoses Not on filedocumented in this encounter
--- OUTSIDE RECORDS SUMMARY | 2024-02-22 15:22 | XMS_ITS | Referral Summary ---
Author Organization [facility] Address [address] [place] [id number] Care Team Providers Care Delivery Associate Name Role Phone Unavailable Primary Care Provider [...] Orientation Not on file Plan of Treatment Not on file Procedures Procedure Name Priority Date/Time Associated Diagnosis Comments HEPATITIS C AB W REFLEX TO HCV RNA BY PCR Routine 09/30/2019 14:21 EDT from Last 3 Months or Most Recently Relevant to Health Maintenance Results * HEPATITIS C AB W REFLEX TO HCV RNA BY PCR (09/30/2019 14:21 EDT) Hep C Antibody Negative Negative 10/02/2019 11:43 EDT [facility] Blood VENOUS BLOOD / Unknown 09/30/2019 14:21 EDT 10/01/2019 16:38 EDT Provider Outr Resulting Lab CHEMISTRY & BLOOD GAS ORDERABLES [facility] [address] [place] [phone] from Last 3 Months or Most Recently Relevant to Health Maintenance
--- OUTSIDE RECORDS SUMMARY | 2024-02-22 15:22 | XMS_ITS | Encounter Summary ---
Author Organization [facility] Address [address] [place] [address] Care Team Providers Care County Agricultural Agent Name Role Phone Unavailable Primary Care Provider Unavailabl e Encounter Details Date Type Department Care Team (Late st Contact Info) Description 10/01/2019 Lab Requisition [facility] Pathology & Laboratory Medicine - [facility] [address] [place] [address] Outr Resulting Lab, Provider Social History Tobacco [...] Procedure Name Priority Date/Time Associated Diagnosis Comments PSA TOTAL, DIAGNOSTIC Routine 09/30/2019 14:21 EDT documented in this encounter Results * PSA TOTAL, DIAGNOSTIC (09/30/2019 14:21 EDT) PSA 0.8 0.0 - 4.5 ng/mL 10/02/2019 15:14 EDT [facility] Blood VENOUS BLOOD / Unknown 09/30/2019 14:21 EDT 10/01/2019 16:37 EDT Narrative [facility] - 10/02/2019 15:14 EDT NOTE: Serum PSA concentration should not be interpreted as absolute evidence for the presence or absence of malignant disease. Assayed on Siemens ADVIA Centaur XPT using chemiluminescent technology.??Values obtained by using different assay methods cannot be used interchangeably. Provider Outr Resulting Lab CHEMISTRY & BLOOD GAS ORDERABLES [facility] [address] [place] [address] documented in this encounter Visit Diagnoses Not on filedocumented in this encounter
--- OUTSIDE RECORDS SUMMARY | 2024-02-22 15:22 | XMS_ITS ---
Author Organization Unknown Address [address] [place] [phone] Phone Care Team Providers Care Systems Mgr Name Role Phone OLIVE CID Attending Unavailable ALONSO GARCIA Primary Unavailable Social History Type Status Start Date End Date Code Code Syst em Smoking History Never smoker (Never Smoked) [id number] SNOMED CT Sex Male Assessment You had [...] shoulder arthroscop y, rotator cuff repair 01/05 [id number] 4 05/31/2025 Arthre x(R) AR-2600 SBS-10 Problems Problem Start Date Resolved Date Status Code Code System HYPERTENSION active 01295717 SNOMED- CT DIABETES 2 03/28/2021 resolved 10175095 SNOMED-C T Allergies and Adverse Reactions Allergy Substance Reaction Severity Start Date Concern Status Co de Code System No Known Drug Allergies Active 652210731 SNOMED-CT Plan of Treatment PRE-OP COVID-19 TESTING 01/04/2022 MRI LOWER EXT JOINT W/O CONTRAST 2021 Encounters Encounter Diagnosis Start Date Code Code Sys tem Postprocedural state finding 10/11/2022 545043445 SNOMED-CT Personal Care Team Section Performer Name Performer Role Active Date Inactive Da te
[2024-02-22 21:34] LABS: BUN 16 mg/dL (7-18); CREATININE 0.9 mg/dL (0.70-1.30); Calcium 9.8 mg/dL (8.5-10.1); Chloride 103 mmol/L (98-107); Estimated GFR 94.19 (mL/min/1.73m2); Glucose 121 mg/dL (74-106); Potassium 4.3 mmol/L (3.5-5.1); Sodium 139 mmol/L (136-145)
[2024-02-22 21:46] LABS: COMMENT (LAB VIEW ONLY) 117.96 mg/dL; Microalb ug/mg Crea 6.2 ug/mg Cr
== END 2024-02-22 15:17 | disposition home or self-care (01) ==
LOC: NCHCN 15:16
PROVIDERS: Visit Provider Family Medicine
DX: I10 Essential (primary) hypertension (principal)
CPT/HCPCS: 80048; 82043; 82570

== ENCOUNTER 2025-02-27 21:12 | Outpatient (REF) | payer MEDICARE, SELFPAY ==
[2025-02-27 21:45] LABS: Anion Gap 8.7 mmol/L (3-11); BUN 17 mg/dL (7-18); CO2 26.3 mmol/L (21.0-32.0); Calcium 9.1 mg/dL (8.5-10.1); Chloride 104 mmol/L (98-107); Glucose 122 mg/dL (74-106); Potassium 4.6 mmol/L (3.5-5.1); Sodium 139 mmol/L (136-145)
[2025-02-28 21:10] LABS: PSA, Screening 0.8 ng/mL (<=4.5)
== END 2025-02-27 21:13 | disposition home or self-care (01) ==
LOC: NCHCN 21:12
PROVIDERS: PCP Family Medicine; Visit Provider Family Medicine
DX: Z12.5 Encounter for screening for malignant neoplasm of prostate (principal); I10 Essential (primary) hypertension
CPT/HCPCS: 80048; 84153